=== PATIENT | male | born 1995 | race Caucasian/White ===

== ENCOUNTER 2017-09-30 20:17 | Emergency (ER) | payer SELFPAY ==
[~2017-09-30] VITALS: Ht 177.8 cm; Wt 149.4 kg
[2017-09-30 21:24] VITALS: BP 161/76
--- NOTE | 2017-10-01 01:01 | NUR ---
PATIENT LEFT WITHOUT BEING SEEN BY DR. WHITTEN. NO FURTHER CARE PROVIDED FOR PATIENT.
== END 2017-10-01 01:01 | disposition left against medical advice (07) ==
LOC: MED 20:17
DX: R10.13 Epigastric pain (principal); Z53.21 Procedure and treatment not carried out due to patient leaving prior to being seen by health care provider